=== PATIENT | female | born 1950 | race Caucasian/White ===

== ENCOUNTER 2018-05-06 18:15 | Emergency (ER) | payer MEDICARE ==
[~2018-05-06] VITALS: Ht 165.1 cm; Wt 68.0 kg
[2018-05-06 18:29] VITALS: BP_SYST 156
[2018-05-06] MEDS ORDERED: DIPHENHYDRAMINE INJ 50 MG/ML VIAL IVP ONE (18:30)
[2018-05-06] MEDS ORDERED: methylPREDNISolone SOD SUCC/PF 62.5 MG/ML VIAL IVP ONE (18:30)
[2018-05-06 20:51] VITALS: BP_SYST 143
== END 2018-05-06 20:51 | disposition home or self-care (01) ==
LOC: SED 18:15
DX: T39.015A Adverse effect of aspirin, initial encounter (principal); J45.909 Unspecified asthma, uncomplicated; R03.0 Elevated blood-pressure reading, without diagnosis of hypertension; Z88.6 Allergy status to analgesic agent; Y92.89 Other specified places as the place of occurrence of the external cause
CPT/HCPCS: 96374; 96375; 99283; J1200; J2930